=== PATIENT | female | born 1990 | race Caucasian/White ===

== ENCOUNTER 2017-09-07 01:28 | Emergency (ER) | payer SELFPAY ==
[2017-09-07] MEDS ORDERED: LORazepam 1 MG Tab PO ONE (01:45)
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
== END 2017-09-07 02:02 ==
LOC: JD.ED 01:28
DX: Z02.89 Encounter for other administrative examinations (principal); F10.129 Alcohol abuse with intoxication, unspecified
CPT/HCPCS: 99284; A9270

== ENCOUNTER 2018-04-09 04:09 | Emergency (ER) | payer SELFPAY ==
[2018-04-09] MEDS ORDERED: HYDROmorphone 1 MG/ML Syringe IVPUSH STA (04:46)
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
[2018-04-09] MEDS ORDERED: Sodium Chloride 0.9% 1,000 ML IV SCH (05:00)
[2018-04-09] MEDS ORDERED: Ondansetron 4 MG/2 ML SDV IVPUSH ONE (06:02)
[2018-04-09] MEDS ORDERED: Potassium Chloride 20 MEQ Tab.ER PO ONE (06:03)
--- NOTE | 2018-04-09 07:17 | CT ---
CT facial bones Technique: Multiple axial sections through the facial bones were obtained. Reconstructed coronal and sagittal images were reviewed. Findings: Paranasal sinuses are clear. Mild nasal septal deviation is incidentally noted. Motion artifact is seen. No discrete fracture or other abnormality is seen. Impression: 1. Motion artifact. Other incidental finding. 2. Nothing acute is definitely appreciated. Diagnostic code #2 I agree with preliminary report from [facility], finalized on 04/09/18, 6:55 AM Central Time
== END 2018-04-09 06:50 | disposition home or self-care (01) ==
LOC: JD.ED 04:09
DX: S00.11XA Contusion of right eyelid and periocular area, initial encounter (principal); S00.83XA Contusion of other part of head, initial encounter; F10.129 Alcohol abuse with intoxication, unspecified; Y90.7 Blood alcohol level of 200-239 mg/100 ml; F17.210 Nicotine dependence, cigarettes, uncomplicated; Y04.8XXA Assault by other bodily force, initial encounter
CPT/HCPCS: 36415; 70486; 80053; 85007; 85027; 96361; 96374; 96375; 99284; A9270; G0480; J1170; J2405; J7040

== ENCOUNTER 2018-04-22 00:02 | Emergency (ER) | payer SELFPAY ==
[2018-04-22] MEDS ORDERED: Ondansetron 4 MG/2 ML SDV IVPUSH ONE (00:29)
[2018-04-22] MEDS ORDERED: Sodium Chloride 0.9% 10 ML Syringe FLUSH PRN (00:29)
[2018-04-22] MEDS ORDERED: LORazepam 2 MG/ML SDV IVPUSH ONE (00:29)
[2018-04-22] MEDS ORDERED: HYDROmorphone 1 MG/ML Syringe IVPUSH ONE ×2 (00:29→01:57)
--- NOTE | 2018-04-22 00:31 | EDM.PDOC ---
ED HPI GENERAL MEDICAL PROBLEM - General Chief Complaint: Abdominal Pain Stated Complaint: RIGHT SIDE PAIN Time Seen by Provider: 04/22/18 00:23 Source of Information: Reports: Patient, RN Notes Reviewed - History of Present Illness INITIAL COMMENTS - FREE TEXT/NARRATIVE: 27-year-old female comes in with upper abdominal pain. She's been having this for about a week to 10 days. She was seen [facility] this afternoon, did have an ultrasound done which did not show obvious gallbladder disease. Her friend is now brought her here to the ED for further evaluation of discomfort having just been evaluated about 6-8 hours ago at the [facility]. She's had nausea, decreased appetite but has not been vomiting. Asked about diarrhea she states she's been having diarrhea for "2 months". She states when she does eat there is subsequent watery diarrhea. She still does have her gallbladder and appendix. She appears to be intoxicated on arrival, states she has drank alcohol to "kill the pain". - Related Data Allergies Allergy/AdvReac Type Severity Reaction Status Date / Time No Known Allergies Allergy Verified 04/22/18 00:16 Home Meds: Home Meds Ondansetron [Zofran ODT] 4 mg PO Q6H PRN #10 tab.dis 04/22/18 [Rx] traMADol [Ultram] 50 mg PO Q8HR PRN #10 tab 04/22/18 [Rx] Past Medical History Respiratory History: Reports: Asthma Neurological History: Reports: Seizure Endocrine/Metabolic History: Reports: Obesity/BMI 30+ - Infectious Disease History Infectious Disease History: Reports: Hepatitis C Social & Family History - Family History Family Medical History: Noncontributory - Tobacco Use Smoking Status *Q: Current Every Day Smoker Years of Tobacco use: 4 Packs/Tins Daily: 0.2 - Caffeine Use Caffeine Use: Reports: Soda - Recreational Drug Use Recreational Drug Use: Yes Drug Use in Last 12 Months: Yes Recreational Drug Type: Reports: Marijuana/Hashish Recreational Drug Use Frequency: Weekly - Living Situation & Occupation Living situation: Reports: Single, with Significant Other (Boyfriend) Occupation: Employed ([employer]) ED ROS GENERAL - Review of Systems Review Of Systems: See Below Constitutional: Denies: Fever, Chills, Diaphoresis HEENT: Denies: Throat Pain Respiratory: Denies: Shortness of Breath Cardiovascular: Denies: Chest Pain GI/Abdominal: Reports: Abdominal Pain, Diarrhea, Nausea. Denies: Hematochezia, Melena, Vomiting Musculoskeletal: Reports: Back Pain Skin: Reports: No Symptoms Neurological: Reports: Dizziness ED EXAM, GI/ABD - Physical Exam Exam: See Below General Appearance: Alert, Anxious, Moderate Distress Eyes: Bilateral: Normal Appearance Throat/Mouth: Normal Inspection, Normal Oropharynx Head: Atraumatic. No: Facial Swelling Neck: Supple Respiratory/Chest: No Respiratory Distress, Lungs Clear, Normal Breath Sounds Cardiovascular: Regular Rate, Rhythm GI/Abdominal Exam: Other (Moderate tenderness right upper quadrant upper mid abdomen, lower abdomen soft nontender). No: Guarding, Rebound Back Exam: No: CVA Tenderness (L), CVA Tenderness (R) Extremities: Normal Inspection, Normal Range of Motion Neurological: Alert, CN II-XII Intact Skin Exam: Warm, Normal Color Course - Vital Signs Last Recorded V/S: Last Vital Signs Temp 97.3 F 04/22/18 00:13 Pulse 98 04/22/18 00:13 Resp 18 04/22/18 00:13 BP 137/101 H 04/22/18 00:13 Pulse Ox 98 04/22/18 00:13 - Orders/Labs/Meds Labs: Laboratory Tests 04/22/18 04/22/18 04/22/18 Range/Units 00:44 00:44 00:44 WBC 11.54 H (3.98-10.04) K/mm3 RBC 5.27 H (3.98-5.22) M/mm3 Hgb 15.4 (11.2-15.7) gm/L Hct 47.4 H (34.1-44.9) % MCV 89.9 (79.4-94.8) fl MCH 29.2 (25.6-32.2) pg MCHC 32.5 (32.2-35.5) g/dl RDW Std Deviation 40.6 (36.4-46.3) fL Plt Count 255 (182-369) K/mm3 MPV 10.6 (9.4-12.3) fl Neutrophils % (Manual) 60 (40-60) % Band Neutrophils % 2 (0-10) % Lymphocytes % (Manual) 32 (20-40) % Atypical Lymphs % 0 % Monocytes % (Manual) 6 (2-10) % Eosinophils % (Manual) 0 L (0.7-5.8) % Basophils % (Manual) 0 L (0.1-1.2) Platelet Estimate Adequate Plt Morphology Comment Normal Target Cells 1+ slight Stomatocytes 1+ slight RBC Morph Comment Not Reportable Sodium 141 (136-145) mEq/L Potassium 3.2 L (3.5-5.1) mEq/L Chloride 103 (98-107) mEq/L Carbon Dioxide 26 (21-32) mEq/L Anion Gap 15.2 H (5-15) BUN 7 (7-18) mg/dL Creatinine 0.9 (0.55-1.02) mg/dL Est Cr Clr Drug Dosing 78.36 mL/min Estimated GFR (MDRD) > 60 (>60) mL/min BUN/Creatinine Ratio 7.8 L (14-18) Glucose 94 (74-106) mg/dL Calcium 9.5 (8.5-10.1) mg/dL Total Bilirubin 0.6 (0.2-1.0) mg/dL GGT 345 H (5-55) U/L AST 57 H (15-37) U/L ALT 61 H (14-59) U/L Alkaline Phosphatase 85 (46-116) U/L C-Reactive Protein 0.3 (<1.0) mg/dL Total Protein 8.1 (6.4-8.2) g/dl Albumin 3.9 (3.4-5.0) g/dl Globulin 4.2 gm/dL Albumin/Globulin Ratio 0.9 L (1-2) Lipase 147 (73-393) U/L Ethyl Alcohol 0.16 (0.00) gm% Meds: Medications Discontinued Medications Generic Name Dose Route Start Last Admin Trade Name Freq PRN Reason Stop Dose Admin Hydromorphone HCl 1 mg 04/22/18 00:29 04/22/18 00:47 Dilaudid IVPUSH 04/22/18 00:30 1 mg ONETIME ONE Administration Hydromorphone HCl 1 mg 04/22/18 01:57 04/22/18 02:03 Dilaudid IVPUSH 04/22/18 01:58 1 mg ONETIME ONE Administration Lorazepam 1 mg 04/22/18 00:29 04/22/18 00:45 Ativan IVPUSH 04/22/18 00:30 1 mg ONETIME ONE Administration Ondansetron HCl 4 mg 04/22/18 00:29 04/22/18 00:45 Zofran IVPUSH 04/22/18 00:30 4 mg ONETIME ONE Administration Sodium Chloride 10 ml 04/22/18 00:29 04/22/18 00:47 Saline Flush FLUSH 10 ml ASDIRECTED PRN Administration Keep Vein Open - Re-Assessments/Exams Free Text/Narrative Re-Assessment/Exam: 04/22/18 02:06 Patient was treated with Ativan 1 mg IV Dilaudid 0.5 mg IV. She is still having significant discomfort so further 0.5 mg Dilaudid IV was given. She states the pain is down to about a "7". Did plan to give a dose of Toradol for further pain relief. She states that Toradol makes her dizzy, she does not like how it makes her feel and is refusing Toradol. She does not appear overly drowsy at this time realizing that she now does have Ativan, Dilaudid and alcohol on board. Her blood alcohol has come back at 0.16. We'll give a further dose of Dilaudid 0.5 mg IV but she has been informed there will be no further IV or other pain medication given at this time. We'll check flat and upright abdomen prior to discharge. Labs are as documented. White blood count very mildly elevated, lipase normal, liver enzymes mildly elevated, bilirubin normal. Did obtain radiology and lab results from [facility]. Ultrasound report does not reveal any acute abnormality other than fatty liver, see report for details.. Labs are as documented. Departure - Departure Time of Disposition: 02:31 Disposition: Home, Self-Care 01 Condition: Fair Clinical Impression: Abdominal pain Qualifiers: Abdominal location: upper abdomen, unspecified Qualified Code(s): R10.10 - Upper abdominal pain, unspecified Diarrhea Qualifiers: Diarrhea type: unspecified type Qualified Code(s): R19.7 - Diarrhea, unspecified - Discharge Information Prescriptions: traMADol [Ultram] 50 mg PO Q8HR PRN #10 tab PRN Reason: Abdominal Pain Ondansetron [Zofran ODT] 4 mg PO Q6H PRN #10 tab.dis PRN Reason: Nausea/Vomiting Instructions: Abdominal Pain, Adult, [id number] Referrals: PCP,Not In Area [Primary Care Provider] - Forms: ED Department Discharge Additional Instructions: Clear liquids only for 24 hours, than very careful bland low fat diet as tolerated. Try avoid further alcohol. Zofran if needed for further nausea or vomiting. tramadol if needed for further pain. Call clinic in morning and see if they can arrange for a HIDA scan of your gallbladder to better see if you have a gallbladder problem. Probiotic 3 times daily for 2 days and than twice daily. Continue to follow up clinic until pain resolving.
--- NOTE | 2018-04-22 06:35 | CR ---
Abdomen: Supine and upright views of the abdomen were obtained. Comparison: No prior abdominal x-ray. Bowel gas pattern is normal. No abnormal calcifications or soft tissue abnormality is seen. Bony structures are unremarkable. Small calcification within the right pelvis is seen compatible with phlebolith. Impression: 1. Nothing acute seen on two-view abdominal x-ray. Diagnostic code #1
== END 2018-04-22 02:44 | disposition home or self-care (01) ==
LOC: JD.ED 00:02
DX: R10.11 Right upper quadrant pain (principal); R19.7 Diarrhea, unspecified; F17.210 Nicotine dependence, cigarettes, uncomplicated
CPT/HCPCS: 36415; 74019; 80053; 82977; 83690; 85007; 85027; 86140; 96374; 96375; 96376; 99284; G0480; J1170; J2060; J2405

== ENCOUNTER 2018-04-23 13:57 | Emergency (ER) | payer OTHER ==
[2018-04-23] MEDS ORDERED: Sodium Chloride 0.9% 1,000 ML IV ONE (15:33)
[2018-04-23] MEDS ORDERED: Ketorolac 30 MG/ML SDV IVPUSH ONE (15:34)
--- NOTE | 2018-04-23 15:51 | EDM.PDOC ---
ED HPI GENERAL MEDICAL PROBLEM - General Chief Complaint: Gastrointestinal Problem Stated Complaint: RE CK RIGHT SIDE PAIN Time Seen by Provider: 04/23/18 14:17 Source of Information: Reports: Patient History Limitations: Reports: No Limitations - History of Present Illness INITIAL COMMENTS - FREE TEXT/NARRATIVE: 27 yo F comes in for RUQ abdominal pain, worsening for 2 weeks. She states she Dr. Reyez in [place] and had an u/s of her gallbladder and was told it "wasn't right" and that she would need a HIDA scan. She states she has been waiting for the appointment for 2 weeks and heard nothing, was told to come here for HIDA scan. I explained we don't have HIDA scan and she will need to go to [place]. She states she is in "too much pain" to drive and needs "help now". She currently c/o 10/10 RUQ pain, can't sleep d/t the pain, dehydration, shaking, N/ V (although improves with Zofran), yellow diarrhea. She has never had this kind of pain. She denies F/C, chest pain, SOB, other GI/ symptoms at this time. Ultram hasn't helped. PCP is Dr. Reyez in [place]. Right Upper Abdomen Pain Score (Numeric/FACES): 10 - Related Data Allergies Allergy/AdvReac Type Severity Reaction Status Date / Time No Known Allergies Allergy Verified 04/23/18 14:11 Home Meds: Home Meds Ondansetron [Zofran ODT] 4 mg PO Q6H PRN #10 tab.dis 04/22/18 [Rx] traMADol [Ultram] 50 mg PO Q8HR PRN #10 tab 04/22/18 [Rx] Albuterol Sulfate [Albuterol Sulfate Hfa] 2 inh INH Q4HR PRN 04/23/18 [History] Budesonide/Formoterol Fumarate [Symbicort 80-4.5 Mcg Inhaler] 2 inh INH DAILY [History] Past Medical History Respiratory History: Reports: Asthma Neurological History: Reports: Seizure Endocrine/Metabolic History: Reports: Obesity/BMI 30+ - Infectious Disease History Infectious Disease History: Reports: Hepatitis C Social & Family History - Family History Family Medical History: Noncontributory - Tobacco Use Smoking Status *Q: Current Every Day Smoker Years of Tobacco use: 10 Packs/Tins Daily: 0.2 - Caffeine Use Caffeine Use: Reports: Energy Drinks, Soda, Tea - Recreational Drug Use Recreational Drug Use: Yes Recreational Drug Type: Reports: Marijuana/Hashish Other Recreational Drug Type: last used about 1.5 months ago - Living Situation & Occupation Living situation: Reports: Single, with Significant Other (Boyfriend) Occupation: Employed ([employer]) ED ROS GENERAL - Review of Systems Review Of Systems: See Below Constitutional: Denies: Fever, Chills HEENT: Reports: No Symptoms Respiratory: Denies: Cough Cardiovascular: Reports: No Symptoms. Denies: Chest Pain Endocrine: Reports: No Symptoms GI/Abdominal: Reports: Abdominal Pain (RUQ), Diarrhea (yellow), Nausea, Vomiting (yellow vomitus) : Reports: No Symptoms Musculoskeletal: Reports: No Symptoms Skin: Reports: No Symptoms Neurological: Reports: No Symptoms Psychiatric: Reports: No Symptoms Hematologic/Lymphatic: Reports: No Symptoms Immunologic: Reports: No Symptoms ED EXAM, GI/ABD - Physical Exam Exam: See Below Exam Limited By: No Limitations General Appearance: Alert, WD/WN, Moderate Distress Eyes: Bilateral: Normal Appearance, EOMI Ears: Normal External Exam, Normal Canal, Hearing Grossly Normal Nose: Normal Inspection, Normal Mucosa, No Blood Throat/Mouth: Normal Inspection, Normal Lips, Normal Teeth, Normal Gums, Normal Oropharynx, Normal Voice, No Airway Compromise Head: Atraumatic, Normocephalic Neck: Normal Inspection, Supple, Non-Tender, Full Range of Motion Respiratory/Chest: No Respiratory Distress, Lungs Clear, Normal Breath Sounds, No Accessory Muscle Use, Chest Non-Tender Cardiovascular: Normal Peripheral Pulses, No Edema, No Gallop, No JVD, No Murmur , No Rub, Tachycardia GI/Abdominal Exam: Soft, No Organomegaly, No Distention, No Abnormal Bruit, No Mass, Pelvis Stable, Guarding, Rebound, Tender (RUQ), Abnormal Bowel Sounds ( hypoactive) Back Exam: Normal Inspection, Full Range of Motion, NT Extremities: Normal Inspection, Normal Range of Motion, Non-Tender, Normal Capillary Refill, No Pedal Edema Psychiatric: Tearful Skin Exam: Warm, Dry, Intact, Normal Color, No Rash Course - Vital Signs Last Recorded V/S: Last Vital Signs Temp 97.2 F 04/23/18 14:06 Pulse 103 H 04/23/18 14:06 Resp 19 04/23/18 14:06 BP 130/91 H 04/23/18 14:06 Pulse Ox 99 04/23/18 14:06 - Orders/Labs/Meds Labs: Laboratory Tests 04/23/18 04/23/18 04/23/18 Range/Units 14:35 14:35 14:35 WBC 10.76 H (3.98-10.04) K/mm3 RBC 5.18 (3.98-5.22) M/mm3 Hgb 15.3 (11.2-15.7) gm/L Hct 47.5 H (34.1-44.9) % MCV 91.7 (79.4-94.8) fl MCH 29.5 (25.6-32.2) pg MCHC 32.2 (32.2-35.5) g/dl RDW Std Deviation 41.9 (36.4-46.3) fL Plt Count 236 (182-369) K/mm3 MPV 10.5 (9.4-12.3) fl Neutrophils % (Manual) 57 (40-60) % Band Neutrophils % 0 (0-10) % Lymphocytes % (Manual) 36 (20-40) % Atypical Lymphs % 0 % Monocytes % (Manual) 5 (2-10) % Eosinophils % (Manual) 2 (0.7-5.8) % Basophils % (Manual) 0 L (0.1-1.2) Platelet Estimate Adequate RBC Morph Comment Normal Sodium 141 (136-145) mEq/L Potassium 3.9 (3.5-5.1) mEq/L Chloride 102 (98-107) mEq/L Carbon Dioxide 28 (21-32) mEq/L Anion Gap 14.9 (5-15) BUN 5 L (7-18) mg/dL Creatinine 0.9 (0.55-1.02) mg/dL Est Cr Clr Drug Dosing 78.36 mL/min Estimated GFR (MDRD) > 60 (>60) mL/min BUN/Creatinine Ratio 5.6 L (14-18) Glucose 89 (74-106) mg/dL Calcium 9.3 (8.5-10.1) mg/dL Total Bilirubin 0.4 (0.2-1.0) mg/dL AST 61 H (15-37) U/L ALT 64 H (14-59) U/L Alkaline Phosphatase 91 (46-116) U/L C-Reactive Protein 1.9 H* (<1.0) mg/dL Total Protein 8.2 (6.4-8.2) g/dl Albumin 3.9 (3.4-5.0) g/dl Globulin 4.3 gm/dL Albumin/Globulin Ratio 0.9 L (1-2) Amylase 44 (25-115) U/L Lipase 164 (73-393) U/L HCG, Quant mIU/mL Urine Color (Yellow) Urine Appearance (Clear) Urine pH (5.0-8.0) Ur Specific [place] (1.005-1.030) Urine Protein (Negative) Urine Glucose (UA) (Negative) Urine Ketones (Negative) Urine Occult Blood (Negative) Urine Nitrite (Negative) Urine Bilirubin (Negative) Urine Urobilinogen (0.2-1.0) Ur Leukocyte Esterase (Negative) 04/23/18 04/23/18 Range/Units 14:35 15:29 WBC (3.98-10.04) K/mm3 RBC (3.98-5.22) M/mm3 Hgb (11.2-15.7) gm/L Hct (34.1-44.9) % MCV (79.4-94.8) fl MCH (25.6-32.2) pg MCHC (32.2-35.5) g/dl RDW Std Deviation (36.4-46.3) fL Plt Count (182-369) K/mm3 MPV (9.4-12.3) fl Neutrophils % (Manual) (40-60) % Band Neutrophils % (0-10) % Lymphocytes % (Manual) (20-40) % Atypical Lymphs % % Monocytes % (Manual) (2-10) % Eosinophils % (Manual) (0.7-5.8) % Basophils % (Manual) (0.1-1.2) Platelet Estimate RBC Morph Comment Sodium (136-145) mEq/L Potassium (3.5-5.1) mEq/L Chloride (98-107) mEq/L Carbon Dioxide (21-32) mEq/L Anion Gap (5-15) BUN (7-18) mg/dL Creatinine (0.55-1.02) mg/dL Est Cr Clr Drug Dosing mL/min Estimated GFR (MDRD) (>60) mL/min BUN/Creatinine Ratio (14-18) Glucose (74-106) mg/dL Calcium (8.5-10.1) mg/dL Total Bilirubin (0.2-1.0) mg/dL AST (15-37) U/L ALT (14-59) U/L Alkaline Phosphatase (46-116) U/L C-Reactive Protein (<1.0) mg/dL Total Protein (6.4-8.2) g/dl Albumin (3.4-5.0) g/dl Globulin gm/dL Albumin/Globulin Ratio (1-2) Amylase (25-115) U/L Lipase (73-393) U/L HCG, Quant < 1.0 mIU/mL Urine Color Dark yellow (Yellow) Urine Appearance Clear (Clear) Urine pH 7.0 (5.0-8.0) Ur Specific [place] 1.025 (1.005-1.030) Urine Protein Trace H (Negative) Urine Glucose (UA) Negative (Negative) Urine Ketones Negative (Negative) Urine Occult Blood Negative (Negative) Urine Nitrite Negative (Negative) Urine Bilirubin Negative (Negative) Urine Urobilinogen 1.0 (0.2-1.0) Ur Leukocyte Esterase Negative (Negative) Meds: Medications Discontinued Medications Generic Name Dose Route Start Last Admin Trade Name Freq PRN Reason Stop Dose Admin Sodium Chloride 1,000 mls @ 999 mls/hr 04/23/18 15:33 04/23/18 15:40 Normal Saline IV 04/23/18 16:33 999 mls/hr ONETIME ONE Administration Ketorolac Tromethamine 30 mg 04/23/18 15:34 04/23/18 15:39 Toradol IVPUSH 04/23/18 15:35 30 mg ONETIME ONE Administration - Re-Assessments/Exams Free Text/Narrative Re-Assessment/Exam: 04/23/18 15:24 CBC, CMP, CRP, Amylase, Lipase, HCG, UA ordered IVF and Toradol also given 04/23/18 15:55 Updated from nursing she is feeling much better after the Toradol U/S report from [facility] shows nothing acute, only finding is fatty liver. Will re -do GB U/S here. 04/23/18 16:31 CBC shows slightly elevated WBC 10.76 CMP shows elevated liver enzymes (AST 61, ALT 64) Negative Amylase 44, Lipase 164 HCG is negative UA is negative CRP 1.9 Gallbladder U/s pending 04/23/18 17:27 Gallbladder shows nothing acute, just fatty liver like the last U/S. At this time, her labs are not impressive for any acute infection. It is reasonable that with the negative workup she be discharged home and f/u with PCP and to get her HIDA scan in [place] outpt. Pt agrees and understands with this plan. Departure - Departure Time of Disposition: 17:29 Disposition: Home, Self-Care 01 Condition: Good Clinical Impression: Diarrhea Abdominal pain Qualifiers: Abdominal location: upper abdomen, unspecified Qualified Code(s): R10.10 - Upper abdominal pain, unspecified - Discharge Information *PRESCRIPTION DRUG MONITORING PROGRAM REVIEWED*: Not Applicable *COPY OF PRESCRIPTION DRUG MONITORING REPORT IN PATIENT TOVA: Not Applicable Instructions: Abdominal Pain, Adult, [id number], Diarrhea, Adult, Easy-to- Read Referrals: PCP,Not In Area [Primary Care Provider] - Forms: ED Department Discharge Additional Instructions: You were seen in the ED today for unexplained abdominal pain. At this time your labs and imaging workup were negative for any infection or Gallbladder issue. It is recommended you follow up with your primary care provider and get your HIDA scan outpt in [place]. For diarrhea, stick with bland diet (BRAT- banana, rice, applesauce, toast) and fluids (Gatorade, water, pedialyte). Please return to ED if new or worsening symptoms.
--- NOTE | 2018-04-23 17:14 | US ---
Limited abdominal ultrasound: Multiple real-time images of the upper right abdomen were obtained. Comparison: Prior abdominal x-ray of 04/22/18. Liver is somewhat echogenic in relation to the right kidney. This is felt compatible with fatty infiltration. No focal abnormality is seen within the liver. Right kidney shows no hydronephrosis or mass. Right kidney has a length of 11.4 cm. Gallbladder contains no shadowing gallstones. No gallbladder wall thickening or biliary duct dilatation is seen. Pancreas is mostly obscured from bowel gas. Visualized portions of the pancreas are within normal limits. Inferior vena cava is patent. Portal vein shows normal hepatopedal flow. Impression: 1. Fatty infiltration within the liver. 2. No additional abnormality is identified on right upper quadrant abdominal ultrasound exam. Diagnostic code #2
== END 2018-04-23 17:39 | disposition home or self-care (01) ==
LOC: JD.ED 13:57
DX: R10.11 Right upper quadrant pain (principal); R19.7 Diarrhea, unspecified; F17.210 Nicotine dependence, cigarettes, uncomplicated
CPT/HCPCS: 36415; 76705; 80053; 81003; 82150; 83690; 84702; 85007; 85027; 86140; 96361; 96374; 99284; J1885; J7040

== ENCOUNTER 2024-10-28 16:47 | Emergency (ER) | payer MEDICAID, OTHER ==
[2024-10-28] MEDS ORDERED: Sodium Chloride 0.9% 10 ML Syringe FLUSH PRN (17:07)
[2024-10-28 17:57] LABS: BASOPHILS ABSOLUTE AUTO 0.1 K/mm3 (0.0-0.2); BASOPHILS PERCENT AUTO 0.6 % (0.0-1.0); EOSINOPHILS ABSOLUTE AUTO 0.2 K/mm3 (0.0-0.4); EOSINOPHILS PERCENT AUTO 1.8 % (0.0-6.0); IMMATURE GRAN ABSOLUTE AUTO 0.05 K/mm3 (0.00-0.05); IMMATURE GRAN PERCENT AUTO 0.4 % (0.0-0.4); LYMPHOCYTES ABSOLUTE AUTO 4.0 K/mm3 (1.0-4.8); LYMPHOCYTES PERCENT AUTO 31.3 % (24.0-44.0); MEAN PLATELET VOLUME 10.9 fl (9.4-12.3); MONOCYTES ABSOLUTE AUTO 1.0 K/mm3 (0.0-0.8); MONOCYTES PERCENT AUTO 7.9 % (0.0-8.0); NEUTROPHILS ABSOLUTE AUTO 7.4 K/mm3 (1.8-7.7); NEUTROPHILS PERCENT AUTO 58.0 % (41.0-71.0); NRBC ABSOLUTE 0.00 (0.00-0.02); NRBC PERCENT 0.0 % (0.0-0.2); PLATELET COUNT,PLT 266 K/mm3 (150-400); RED BLOOD CELL COUNT 5.68 M/mm3 (4.10-5.30); WHITE BLOOD CELL COUNT,WBC 12.78 K/mm3 (3.9-11.3)
[2024-10-28] MEDS: diphenhydrAMINE 50 MG/ML SDV IVPUSH ONE (18:09)
[2024-10-28] MEDS: droPERidol 2.5 MG/ML SDV IVPUSH ONE (18:12)
[2024-10-28 18:27] LABS: A/G RATIO 1.0 (1-2); ALANINE AMINOTRANSFERASE,ALT 66.0 U/L (14-59); ASPARTATE AMNIOTRANSFERASE,AST 41.0 U/L (15-37); BILIRUBIN TOTAL 0.8 mg/dL (0.2-1.0); BLOOD UREA NITROGEN,BUN 9.0 mg/dL (7-18); CARBON DIOXIDE,CO2 28.0 mEq/L (21-32); CHLORIDE,CL 97.0 mEq/L (98-107); CREATININE 1.0 mg/dL (0.55-1.02); EST CRCL DRUG DOSING (CG) 66.19 mL/min; ESTIMATED GFR 76.0 mL/min (>60); GLUCOSE RANDOM 107.0 mg/dL (70-99); POTASSIUM,K 3.0 mEq/L (3.5-5.1); PROTEIN TOTAL,TP 7.7 g/dl (6.4-8.2); SODIUM,NA 135.0 mEq/L (136-145)
[2024-10-28] MEDS: Potassium Chloride 20 MEQ Tab.ER PO ONE (20:43)
== END 2024-10-28 21:35 | disposition home or self-care (01) ==
LOC: JD.ED 16:47
DX: R11.2 Nausea with vomiting, unspecified (principal); F12.90 Cannabis use, unspecified, uncomplicated; J45.909 Unspecified asthma, uncomplicated; K21.9 Gastro-esophageal reflux disease without esophagitis; Z86.16 Personal history of COVID-19; Z79.51 Long term (current) use of inhaled steroids; Z79.899 Other long term (current) drug therapy
CPT/HCPCS: 36415; 80053; 83690; 83735; 84703; 85025; 86140; 96361; 96374; 96375; 99284; A9270; J1200; J1308; J1790; J7030

== ENCOUNTER 2024-10-29 10:40 | Emergency (ER) | payer MEDICAID, OTHER ==
[2024-10-29] MEDS ORDERED: Sodium Chloride 0.9% 10 ML Syringe FLUSH PRN (11:02)
[2024-10-29] MEDS: diphenhydrAMINE 50 MG/ML SDV IVPUSH ONE (11:34)
[2024-10-29] MEDS: droPERidol 2.5 MG/ML SDV IVPUSH ONE (11:34)
[2024-10-29 11:38] LABS: BASOPHILS ABSOLUTE AUTO 0.1 K/mm3 (0.0-0.2); BASOPHILS PERCENT AUTO 0.6 % (0.0-1.0); EOSINOPHILS ABSOLUTE AUTO 0.2 K/mm3 (0.0-0.4); EOSINOPHILS PERCENT AUTO 1.4 % (0.0-6.0); IMMATURE GRAN ABSOLUTE AUTO 0.05 K/mm3 (0.00-0.05); IMMATURE GRAN PERCENT AUTO 0.4 % (0.0-0.4); LYMPHOCYTES ABSOLUTE AUTO 2.2 K/mm3 (1.0-4.8); LYMPHOCYTES PERCENT AUTO 19.5 % (24.0-44.0); MEAN PLATELET VOLUME 11.1 fl (9.4-12.3); MONOCYTES ABSOLUTE AUTO 0.7 K/mm3 (0.0-0.8); MONOCYTES PERCENT AUTO 6.4 % (0.0-8.0); NEUTROPHILS ABSOLUTE AUTO 8.2 K/mm3 (1.8-7.7); NEUTROPHILS PERCENT AUTO 71.7 % (41.0-71.0); NRBC ABSOLUTE 0.00 (0.00-0.02); NRBC PERCENT 0.0 % (0.0-0.2); PLATELET COUNT,PLT 265 K/mm3 (150-400); RED BLOOD CELL COUNT 5.56 M/mm3 (4.10-5.30); WHITE BLOOD CELL COUNT,WBC 11.40 K/mm3 (3.9-11.3)
[2024-10-29 11:59] LABS: APPEARANCE,URINE SLT CLOUDY (Clear); GLUCOSE,URINE NEGATIVE (Negative); OCCULT BLOOD,URINE NEGATIVE (Negative)
[2024-10-29 12:17] LABS: A/G RATIO 1.0 (1-2); ALANINE AMINOTRANSFERASE,ALT 65.0 U/L (14-59); ASPARTATE AMNIOTRANSFERASE,AST 38.0 U/L (15-37); BILIRUBIN TOTAL 0.5 mg/dL (0.2-1.0); BLOOD UREA NITROGEN,BUN 7.0 mg/dL (7-18); CARBON DIOXIDE,CO2 30.0 mEq/L (21-32); CHLORIDE,CL 101.0 mEq/L (98-107); CREATININE 1.0 mg/dL (0.55-1.02); EST CRCL DRUG DOSING (CG) 66.19 mL/min; ESTIMATED GFR 76.0 mL/min (>60); GLUCOSE RANDOM 110.0 mg/dL (70-99); POTASSIUM,K 3.5 mEq/L (3.5-5.1); PROTEIN TOTAL,TP 7.4 g/dl (6.4-8.2); SODIUM,NA 141.0 mEq/L (136-145)
[2024-10-29] MEDS: Ketorolac 30 MG/ML SDV IVPUSH ONE (12:47)
== END 2024-10-29 16:04 | disposition home or self-care (01) ==
LOC: JD.ED 10:40
DX: R11.2 Nausea with vomiting, unspecified (principal); F12.90 Cannabis use, unspecified, uncomplicated; J45.909 Unspecified asthma, uncomplicated; K21.9 Gastro-esophageal reflux disease without esophagitis; F17.200 Nicotine dependence, unspecified, uncomplicated; Z86.16 Personal history of COVID-19; Z79.51 Long term (current) use of inhaled steroids; Z79.899 Other long term (current) drug therapy
CPT/HCPCS: 36415; 70450; 80053; 81001; 83690; 85025; 87086; 87088; 87186; 96361; 96374; 96375; 99284; A9270; J1200; J1790; J1885; J7030